=== PATIENT | male | born 1975 | race Caucasian/White ===

== ENCOUNTER 2018-12-04 14:40 | Emergency (ER) | payer MEDICAID, OTHER ==
[2018-12-04] MEDS ORDERED: solu-MEDROL 125 MG IV ONE (15:30)
[2018-12-04] MEDS ORDERED: Sodium Chloride 0.9% 1000 ML 1,000 ML IV STA (15:30)
[2018-12-04] MEDS ORDERED: HYDROCODONE-ACETAMIN 2.5-108/5 ML SOLUTION PO STA (15:32)
[2018-12-04] MEDS ORDERED: HYDROCODONE-ACETAMIN 2.5-108/5 ML SOLUTION ONE (15:38)
[2018-12-04] MEDS ORDERED: solu-MEDROL 125 MG ONE (15:39)
[2018-12-04] MEDS ORDERED: Sodium Chloride 0.9% 1000 ML 1,000 ML ONE (15:39)
--- NOTE | 2018-12-04 15:39 | ERPHSYRPT ---
- History of Present Illness Time Seen by Provider: 12/04/18 15:09 Source: patient Exam Limitations: no limitations Patient Subjective Stated Complaint: cough to the point of "seizing" since last saturday. states arms flail. has stomache cramping from coughing so much Triage Nursing Assessment: alert and oriented with c/o cough to the point of seizing since last saturday.. staes he passes out. unsure if he has had a fever.. non productive cough. skin warm to touch Physician History: 43 y/o obese white male with h/o sinus issues, presents with 9 days of intermittent coughing. pt has coughed to the point of passing out. unsure if he had a fever at home. no n/v/d or abd pain. no soa. pt states he has not eaten or drank well in last 9 days. Timing/Duration: day(s) (9) Cough Quality/Degree: moderate, dry cough Possible Cause: no prior episodes Modifying Factors: Improves With: coughing Associated Symptoms: chest pain/soreness (with coughing only), cough, nasal congestion, No chills, No shortness of breath, No sore throat Allergies/Adverse Reactions: No Known Drug Allergies Allergy (Unverified 12/04/18 15:16) Immunizations Up to Date: No - Review of Systems Constitutional: No Symptoms Eyes: No Symptoms Ears, Nose, & Throat: Nose Congestion Respiratory: Cough, No Dyspnea, No Stridor, No Wheezing Cardiac: No Symptoms, No Chest Pain, No Palpitations, No Syncope Abdominal/Gastrointestinal: No Symptoms, No Abdominal Pain, No Nausea, No Vomiting, No Diarrhea Genitourinary Symptoms: No Symptoms, No Dysuria, No Frequency, No Hematuria Musculoskeletal: No Symptoms, No Arthralgias, No Back Pain Skin: No Symptoms Neurological: No Symptoms, No Dizziness, No Headache Psychological: No Symptoms Endocrine: No Symptoms Hematologic/Lymphatic: No Symptoms Immunological/Allergic: No Symptoms All Other Systems: Reviewed and Negative - Past Medical History Pertinent Past Medical History: Yes Neurological History: No Pertinent History ENT History: No Pertinent History Cardiac History: No Pertinent History Respiratory History: No Pertinent History Endocrine Medical History: No Pertinent History Musculoskeletal History: No Pertinent History GI Medical History: No Pertinent History History: No Pertinent History Psycho-Social History: No Pertinent History Male Reproductive Disorders: No Pertinent History - Past Surgical History Past Surgical History: Yes Neuro Surgical History: No Pertinent History Cardiac: No Pertinent History Respiratory: No Pertinent History Gastrointestinal: No Pertinent History Genitourinary: No Pertinent History Musculoskeletal: No Pertinent History Male Surgical History: No Pertinent History - Social History Smoking Status: Never smoker Exposure to second hand smoke: No Drug Use: none Patient Lives Alone: No - Nursing Vital Signs Nursing Vital Signs: Initial Vital Signs Temperature 100 F 12/04/18 15:08 Respiratory Rate 18 12/04/18 15:08 Blood Pressure 127/85 12/04/18 15:08 O2 Sat by Pulse Oximetry 100 12/04/18 15:08 Pain Scale Pain Intensity 3 - Physical Exam General Appearance: mild distress, alert Eye Exam: PERRL/EOMI Ears, Nose, Throat Exam: normal ENT inspection, TMs normal, dry mucous membranes Neck Exam: normal inspection, non-tender, supple, full range of motion Respiratory Exam: normal breath sounds, lungs clear, airway intact, No chest tenderness, No respiratory distress, No accessory muscle use, No rhonchi, No wheezing, No stridor Cardiovascular Exam: regular rate/rhythm, normal heart sounds, normal peripheral pulses Gastrointestinal/Abdomen Exam: soft, normal bowel sounds, No tenderness, No guarding, No rebound Rectal Exam: not done Back Exam: normal inspection, normal range of motion, No CVA tenderness, No vertebral tenderness Extremity Exam: normal inspection Neurologic Exam: alert, oriented x 3, cooperative, appliquer II-XII nml as tested Skin Exam: normal color, warm, dry Lymphatic Exam: No adenopathy SpO2 Interpretation: normal SpO2: 100 O2 Delivery: Room Air - Course Nursing assessment & vital signs reviewed: Yes Ordered Tests: Active Orders 24 hr Category Date Time Status Accounting Methods Analyst STAT Care 12/04/18 15:31 Active IV Insertion STAT Care 12/04/18 15:30 Active Pulse Oximetry (ED) STAT Care 12/04/18 15:30 Active CHEST 1 VIEW (PORTABLE) Stat Exams 12/04/18 15:44 Completed BLOOD CULTURE Stat Lab 12/04/18 15:50 Received CBC W DIFF Stat Lab 12/04/18 15:45 Completed CMP Stat Lab 12/04/18 15:45 Completed D-DIMER QUANTITATION Stat Lab 12/04/18 15:45 Completed Medication Summary Generic Name Dose Route Start Last Admin Trade Name Freq PRN Reason Stop Dose Admin Ceftriaxone Sodium/Dextrose 1 g in 50 mls @ 100 mls/hr 12/04/18 17:00 17:06 Rocephin 1 Gm-D5w 50 Ml Bag IV 12/04/18 17:29 100 ml/hr STAT STA 100 mls/hr Administration Discontinued Medications Generic Name Dose Route Start Last Admin Trade Name Sobeida PRN Reason Stop Dose Admin Hydrocodone Bitart/Acetaminophen 15 ml 12/04/18 15:32 12/04/18 15:42 Hydrocodone-Acetamin 2.5-108/5 Ml Solution PO 12/04/18 15:33 15 ml STAT STA Administration Hydrocodone Bitart/Acetaminophen Confirm 12/04/18 15:38 Hydrocodone-Acetamin 2.5-108/5 Ml Solution Administered 12/04/18 15:39 Dose 15 ml .ROUTE .STK-MED ONE Sodium Chloride 1,000 mls @ 999 mls/hr 12/04/18 15:30 12/04/18 15:43 Sodium Chloride 0.9% 1000 Ml IV 12/04/18 16:30 999 mls/hr .Q1H1M STA Administration Sodium Chloride Confirm 12/04/18 15:39 Sodium Chloride 0.9% 1000 Ml Administered 12/04/18 15:40 Dose 1,000 mls @ ud .ROUTE .STK-MED ONE Ceftriaxone Sodium/Dextrose Confirm 12/04/18 17:04 Rocephin 1 Gm-D5w 50 Ml Bag Administered 12/04/18 17:05 Dose 1 g in 50 mls @ ud IV .STK-MED ONE Methylprednisolone Sodium Succinate 125 mg 12/04/18 15:30 12/04/18 15:43 Solu-Medrol 125 Mg IV 12/04/18 15:31 125 mg STAT ONE Administration Methylprednisolone Sodium Succinate Confirm 12/04/18 15:39 Solu-Medrol 125 Mg Administered 12/04/18 15:40 Dose 125 mg .ROUTE .STK-MED ONE Lab/Rad Data: Laboratory Result Diagrams 12/04/18 15:45 12/04/18 15:45 Laboratory Results 12/04/18 12/04/18 12/04/18 Range/Units 15:50 15:45 15:45 WBC (4.0-10.5) K/mm3 RBC (4.1-5.6) M/mm3 Hgb (12.5-18.0) gm/dl Hct (42-50) % MCV (78-100) fl MCH (26-32) pg MCHC (32-36) g/dl RDW (11.5-14.0) % Plt Count (150-450) K/mm3 MPV (6-9.5) fl Gran % (36.0-66.0) % Eos # (Auto) (0-0.5) Absolute Lymphs (auto) (1.0-4.6) Absolute Monos (auto) (0.0-1.3) Lymphocytes % (24.0-44.0) % Monocytes % (0.0-12.0) % Eosinophils % (0.00-5.0) % Basophils % (0.0-0.4) % Absolute Granulocytes (1.4-6.9) Basophils # (0-0.4) D-Dimer 343 (215-500) ng/mL Sodium 138 (137-145) mmol/L Potassium 4.3 (3.5-5.1) mmol/L Chloride 101 (98-107) mmol/L Carbon Dioxide 25 (22-30) mmol/L Anion Gap 15.9 H (5-15) MEQ/L BUN 13 (9-20) mg/dL Creatinine 1.47 H (0.66-1.25) mg/dL Estimated GFR 56.1 ML/MIN Glucose 123 H (74-106) mg/dL Calcium 8.8 (8.4-10.2) mg/dL Total Bilirubin 0.60 (0.2-1.3) mg/dL AST 35 (17-59) U/L ALT 54 H (0-50) U/L Alkaline Phosphatase 119 (38-126) U/L Serum Total Protein 8.1 (6.3-8.2) g/dL Albumin 4.5 (3.5-5.0) g/dL Influenza Type A Ag POSITIVE (NEGATIVE) Influenza Type B Ag NEGATIVE (NEGATIVE) RSV (PCR) NEGATIVE (Negative) Group A Strep Antibody NEGATIVE (NEGATIVE) 12/04/18 Range/Units 15:45 WBC 7.6 (4.0-10.5) K/mm3 RBC 4.73 (4.1-5.6) M/mm3 Hgb 15.3 (12.5-18.0) gm/dl Hct 44.3 (42-50) % MCV 93.7 (78-100) fl MCH 32.3 H (26-32) pg MCHC 34.5 (32-36) g/dl RDW 13.1 (11.5-14.0) % Plt Count 185 (150-450) K/mm3 MPV 10.6 H (6-9.5) fl Gran % 69.0 H (36.0-66.0) % Eos # (Auto) 0 (0-0.5) Absolute Lymphs (auto) 0.72 L (1.0-4.6) Absolute Monos (auto) 1.61 H (0.0-1.3) Lymphocytes % 9.5 L (24.0-44.0) % Monocytes % 21.2 H (0.0-12.0) % Eosinophils % 0.0 (0.00-5.0) % Basophils % 0.3 (0.0-0.4) % Absolute Granulocytes 5.24 (1.4-6.9) Basophils # 0.02 (0-0.4) D-Dimer (215-500) ng/mL Sodium (137-145) mmol/L Potassium (3.5-5.1) mmol/L Chloride (98-107) mmol/L Carbon Dioxide (22-30) mmol/L Anion Gap (5-15) MEQ/L BUN (9-20) mg/dL Creatinine (0.66-1.25) mg/dL Estimated GFR ML/MIN Glucose (74-106) mg/dL Calcium (8.4-10.2) mg/dL Total Bilirubin (0.2-1.3) mg/dL AST (17-59) U/L ALT (0-50) U/L Alkaline Phosphatase (38-126) U/L Serum Total Protein (6.3-8.2) g/dL Albumin (3.5-5.0) g/dL Influenza Type A Ag (NEGATIVE) Influenza Type B Ag (NEGATIVE) RSV (PCR) (Negative) Group A Strep Antibody (NEGATIVE) - Progress Progress: improved Air Movement: good Progress Note: 12/04/18 17:11 cxr-no acute process Blood Culture(s) Obtained: No Antibiotics given: Yes Counseled pt/family regarding: lab results, diagnosis, need for follow-up, rad results - Departure Time of Disposition: 17:11 Departure Disposition: Home Clinical Impression: Influenza A (H1N1), Bronchitis Condition: Stable Critical Care Time: No Additional Instructions: drink plenty of fluids. follow up with primary doctor for persistent symptoms. return to ED if symptoms worsen. Prescriptions: Albuterol 8 gm Mdi Hfa [Ventolin Hfa MDI] 8 gm IH Q4H #1 hfa.aer.ad Azithromycin 250 mg [Zithromax 250 MG TABLET] 250 mg PO ZPACK #6 tablet Hydrocodone Bit/Acetaminophen [Hydrocodone-Acetaminophen Soln] 10 ml PO Q6H # 120 ml Prednisone 10 mg [Deltasone 10 mg] 10 mg PO TID #12 tablet
[2018-12-04 15:58] LABS: BASOPHIL % 0.3 % (0.0-0.4); Basophil (Absolute #) 0.02 (0-0.4); Eosinophil (Absolute #) 0 (0-0.5); Granulocyte Absolute (ANC) 5.24 (1.4-6.9); Hematocrit 44.3 % (42-50); Hemoglobin 15.3 gm/dl (12.5-18.0); Lymphocyte (Absolute #) 0.72 (1.0-4.6); Lymphocytes % 9.5 % (24.0-44.0); Mean Cell Volume 93.7 fl (78-100); Mean Corpuscular Hemoglobin 32.3 pg (26-32); Mean Corpuscular Hgb Concent. 34.5 g/dl (32-36); Mean Platelet Volume 10.6 fl (6-9.5); Monocyte (Absolute #) 1.61 (0.0-1.3); Monocytes % 21.2 % (0.0-12.0); Platelet Count 185 K/mm3 (150-450); Red Blood Count 4.73 M/mm3 (4.1-5.6); Red Cell Distribution Width 13.1 % (11.5-14.0); White Blood Count 7.6 K/mm3 (4.0-10.5)
[2018-12-04 16:13] LABS: ALBUMIN 4.5 g/dL (3.5-5.0); ANION GAP 15.9 MEQ/L (5-15); BILIRUBIN,TOTAL 0.6 mg/dL (0.2-1.3); Calcium 8.8 mg/dL (8.4-10.2); Creatinine 1 1.47 mg/dL (0.66-1.25); Potassium 4.3 mmol/L (3.5-5.1); Total Protein 8.1 g/dL (6.3-8.2)
[2018-12-04 16:16] VITALS: BP 145/92
[2018-12-04 16:28] LABS: INFLUENZA A POSITIVE (NEGATIVE); INFLUENZA B NEGATIVE (NEGATIVE); RESPIRATORY SYNCTIAL VIRUS NEGATIVE (Negative)
--- NOTE | 2018-12-04 16:47 | XRAY ---
Indication: Cough. Comparison: November 22, 2006. Portable chest less inflated and clear with incidental right mid lung calcific granuloma. Heart is not enlarged. Bony thorax intact. Impression: Nonacute underinflated chest.
[2018-12-04] MEDS ORDERED: ROCEPHIN 1 Gm-D5w 50 ml Bag** 1 G/50 ML IVPB IV STA (17:00)
[2018-12-04 17:03] LABS: Group A Strep NEGATIVE (NEGATIVE)
[2018-12-04] MEDS ORDERED: ROCEPHIN 1 Gm-D5w 50 ml Bag** 1 G/50 ML IVPB IV ONE (17:04)
[2018-12-04 17:25] LABS: Slide Review 1 YES
[2018-12-04 17:44] VITALS: PULSE 88; O2SAT 98
== END 2018-12-04 17:42 | disposition home or self-care (01) ==
LOC: ED 14:40
DX: J10.1 Influenza due to other identified influenza virus with other respiratory manifestations (principal); J40 Bronchitis, not specified as acute or chronic
CPT/HCPCS: 36000; 36415; 71045; 80053; 85025; 85379; 87040; 87631; 87651; 93041; 96360; 96365; 96374; 99284; J0696; J2930; A9270-GY